=== PATIENT | male | born 1995 | race Caucasian/White ===

== ENCOUNTER 2017-02-07 16:00 | Emergency (ER) | payer MEDICAID, OTHER ==
[~2017-02-07] VITALS: Ht 182.9 cm; Wt 79.5 kg
[2017-02-07 19:27] VITALS: BP 122/63
== END 2017-02-07 19:27 | disposition home or self-care (01) ==
LOC: EMS 16:01
DX: S00.33XA Contusion of nose, initial encounter (principal); S00.81XA Abrasion of other part of head, initial encounter; F12.90 Cannabis use, unspecified, uncomplicated; W31.89XA Contact with other specified machinery, initial encounter; Y93.89 Activity, other specified; Y92.89 Other specified places as the place of occurrence of the external cause; Y99.8 Other external cause status
CPT/HCPCS: 70160; 99284

== ENCOUNTER 2018-10-23 13:23 | Emergency (ER) | payer MEDICAID, OTHER ==
[~2018-10-23] VITALS: Ht 182.9 cm; Wt 75.0 kg
[2018-10-23] MEDS ORDERED: BACITRACIN 0.9 GM PACKET OINTMENT TP ONE (15:00)
[2018-10-23 15:35] VITALS: BP 127/64
== END 2018-10-23 15:47 | disposition home or self-care (01) ==
LOC: EMS 13:23
DX: S61.217A Laceration without foreign body of left little finger without damage to nail, initial encounter (principal); R03.0 Elevated blood-pressure reading, without diagnosis of hypertension; G47.00 Insomnia, unspecified; F12.90 Cannabis use, unspecified, uncomplicated; W25.XXXA Contact with sharp glass, initial encounter; Y93.89 Activity, other specified; Y92.89 Other specified places as the place of occurrence of the external cause; Y99.8 Other external cause status

== ENCOUNTER 2019-10-29 17:22 | Emergency (ER) | payer SELFPAY ==
[~2019-10-29] VITALS: Ht 182.9 cm; Wt 88.6 kg
[2019-10-29 18:01] VITALS: BP 122/89
[2019-10-29] MEDS ORDERED: METHOCARBAMOL 500 MG TABLET PO ONE (19:30)
[2019-10-29] MEDS ORDERED: KETOROLAC TROMETHAMINE 10 MG TABLET PO ONE (19:30)
== END 2019-10-29 19:49 | disposition home or self-care (01) ==
LOC: EMS 17:31
DX: S13.4XXA Sprain of ligaments of cervical spine, initial encounter (principal); S29.012A Strain of muscle and tendon of back wall of thorax, initial encounter; F12.90 Cannabis use, unspecified, uncomplicated; V49.40XA Driver injured in collision with unspecified motor vehicles in traffic accident, initial encounter; Y93.89 Activity, other specified; Y92.89 Other specified places as the place of occurrence of the external cause; Y99.8 Other external cause status